=== PATIENT | male | born 1995 | race Caucasian/White ===

== ENCOUNTER 2018-05-13 19:48 | Emergency (ER) | payer OTHER ==
--- NOTE | 2018-05-13 23:39 | ED ---
Throat Pain/Nasal Congestion - HPI Summary HPI Summary: Patient complains of biting down on nail in restaurant food with concern for ingestion of nail and dental trauma. Denies fever, cough, sore throat, CP, SOB , N/V/D, abdomen pain, change in urine, change in BM. Medical history is none. Nail brought in by patient and is very small like a tack with small head. - History of Current Complaint Chief Complaint: EDGeneral Time Seen by Provider: 05/13/18 21:55 Hx Obtained From: Patient Onset/Duration: Sudden Onset Severity: Mild Associated Signs And Symptoms: Positive: Negative Cough: None - Allergies/Home Medications Allergies/Adverse Reactions: Allergies Allergy/AdvReac Type Severity Reaction Status Date / Time amoxicillin [From Augmentin] Allergy Rash Verified 05/13/18 19:52 clavulanic acid Allergy Rash Verified 05/13/18 19:52 [From Augmentin] ibuprofen Allergy Unknown Verified 05/13/18 19:52 Reaction Details PMH/Surg Hx/FS Hx/Imm Hx Endocrine/Hematology History: Denies: Hx Anticoagulant Therapy Cardiovascular History: Denies: Hx Cardiac Arrest History: Denies: Hx Dialysis Neurological History: Denies: Hx CVA Psychiatric History: Denies: Hx Autism - Immunization History Immunizations Up to Date: Yes Infectious Disease History: No Infectious Disease History: Denies: Traveled Outside the [place] in Last 30 Days - Family History Known Family History: Positive: Non-Contributory - Social History Occupation: Student Lives: Dormitory/Roommates Alcohol Use: Occasionally Substance Use Type: Reports: None Smoking Status (MU): Never Smoked Tobacco Review of Systems Constitutional: Negative Eyes: Negative Positive: Dental Pain Cardiovascular: Negative Respiratory: Negative Gastrointestinal: Negative Genitourinary: Negative Musculoskeletal: Negative Skin: Negative Neurological: Negative Psychological: Normal All Other Systems Reviewed And Are Negative: Yes Physical Exam - Summary Physical Exam Summary: Possible chipped tooth at rear most upper molar on left side. Patient states dental pain further towards the front. Physical exam otherwise unremarkable. Triage Information Reviewed: Yes Vital Signs On Initial Exam: Initial Vitals Temp Pulse Resp BP Pulse Ox 97.3 F 97 16 144/82 96 05/13/18 19:50 05/13/18 19:50 05/13/18 19:50 05/13/18 19:50 05/13/18 19:50 Vital Signs Reviewed: Yes Appearance: Positive: Well-Appearing Skin: Positive: Warm Head/Face: Positive: Normal Head/Face Inspection Eyes: Positive: Normal ENT: Positive: Normal ENT inspection Neck: Positive: Supple Respiratory/Lung Sounds: Positive: Clear to Auscultation Cardiovascular: Positive: Normal Abdomen Description: Positive: Nontender Musculoskeletal: Positive: Normal Neurological: Positive: Normal Psychiatric: Positive: Normal AVPU Assessment: Alert - [place] Coma Scale Best Eye Response: 4 - Spontaneous Best Motor Response: 6 - Obeys Commands Best Verbal Response: 5 - Oriented Coma Scale Total: 15 Diagnostics - Vital Signs Vital Signs Temp Pulse Resp BP Pulse Ox 05/13/18 19:50 97.3 F 97 16 144/82 96 - Laboratory Lab Statement: Any lab studies that have been ordered have been reviewed, and results considered in the medical decision making process. EENT Course/Dx - Course Course Of Treatment: Patient complains of biting down on nail in restaurant food with concern for ingestion of nail and dental trauma. Denies fever, cough , sore throat, CP, SOB, N/V/D, abdomen pain, change in urine, change in BM. Medical history is none. Nail brought in by patient and is very small like a tack with small head. Physical exam:Possible chipped tooth at rear most upper molar on left side. Patient states dental pain further towards the front. Physical exam otherwise unremarkable. Vital signs within normal limits. Chest x-ray and KUB negative for foreign body. Possible chipped tooth on rear upper molar. Patient advised to follow-up with dentist. Patient understands improves of plan. - Diagnoses Provider Diagnoses: No foreign body found on evaluation, Pain, dental Discharge - Sign-Out/Discharge Documenting (check all that apply): Patient Departure - Discharge Plan Condition: Stable Disposition: HOME Patient Education Materials: Foreign Body Ingestion (ED) Forms: *Gen. Provider Communication Referrals: No Primary Care Phys,NOPCP [Primary Care Provider] - Additional Instructions: Follow-up with your dentist for further evaluation of ental trauma. Return to the ED for any new or worsening symptoms. - Billing Disposition and Condition Condition: STABLE Disposition: Home
[2018-05-14 00:23] VITALS: BP 132/74
== END 2018-05-14 00:27 | disposition home or self-care (01) ==
LOC: ED 19:48
DX: K08.89 Other specified disorders of teeth and supporting structures (principal); Z88.0 Allergy status to penicillin
CPT/HCPCS: 71045; 74018; 99282